=== PATIENT | female | born 1955 | race African-American/Black ===

== ENCOUNTER 2023-11-22 10:00 | Outpatient (RCR) | payer MEDICARE, MEDICAID, SELFPAY ==
--- NOTE | 2023-09-26 08:54 | OPREHPOC ---
Outpatient Therapy Plan of Care This is a Multidisciplinary Plan of Care that may contain components documented by all disciplines (PT, OT, and ST.) PT Problem 1 PT Problem #1 Knowledge Deficit PT Goal 1 Goal 1. Perform independent HEP Target Visit 9 PT Problem 2 PT Problem #2 Pain PT Goal 1 Goal 1. Patient able to do all ADL's with pain no higher than 1/10 Target Visit 9 PT Problem 3 PT Problem #3 Impaired Range of Motion PT Goal 1 Goal 1. Improve active knee flexion to 120 to return to prior level and allow for stair navigation Target Visit 9 PT Problem 4 PT Problem #4 Impaired Strength PT Goal 1 Goal 1. Improve L MMT to 5/5 knee flexion and extension in order to perform all ADL's Target Visit 9 PT Problem 5 PT Problem #5 Impaired Gait PT Goal 1 Goal 1. Pt will ambulate with normal gait pattern and no rollator Target Visit 9
--- NOTE | 2023-09-26 08:54 | PTOPEVAL1 ---
Assessment and note entered by Veronica Lopez DPT Evaluation Information Assessment Status Evaluation Subjective Information Pt had L TKA on 08/28/23. Reports she is still having trouble bending it. Had home health for awhile and has been discharged. Is using a walker at all times right now and states she is 50% WB. No walker use before surgery. Highest pain 4/10 and lowest 0/10. Is able to do some cooking and cleaning but has pain with standing too long. Dressing and bathing independently. Has not tried to drive yet. Pt is retired. One step to get into her house, stairs to basement laundry but her daughter is doing that now. Returns to Dr. García on 10/10/23. Patient goal: improve knee bending and get back to doing all my normal activities. Reported Pain Level Pain Score 0: Self Report Assessment PT Clinical Summary The patient is presenting to skilled therapy s/p L TKA on 08/28/23. She presents with greatly decreased flexion range of motion and is currently ambulating with a rollator. These impairments are contributing to her pain and difficulty with normal activities at home including navigating stairs to her basement. She will highly benefit from therapy to address these impairments in order to reduce pain and return to full function. LEFS= 58.75% of function. Plan of Care Interventions Electrical Stimulation,Gait Training,Hot Pack/Cold Pack,Manual Therapy,Neuro Re-education,Patient/ Caregiver Education,Therapeutic Activities, Therapeutic Exercise,Self-Care/Home Management PT Services Indicated Yes Treatment Frequency and 2 times a week for 8 visits Duration These treatments will address the objective and functional deficits as defined above. The patient will be advanced safely and appropriately in order for the patient to progress towards his/her prior level of function. Additional exercises will be introduced and as well as a comprehensive home exercise program upon discharge, if needed, ?to ensure carryover of functional gains achieved in the clinic. This treatment plan has been reviewed and agreement upon by the patient.
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
--- NOTE | 2023-10-25 10:37 | OPREHPOC ---
Outpatient Therapy Plan of Care This is a Multidisciplinary Plan of Care that may contain components documented by all disciplines (PT, OT, and ST.) PT Problem 1 PT Problem #1 Knowledge Deficit PT Goal 1 Goal 1. Perform independent HEP Target Visit 9 Progress Met PT Problem 2 PT Problem #2 Pain PT Goal 1 Goal 1. Patient able to do all ADL's with pain no higher than 1/10 Target Visit 9 Progress Met PT Problem 3 PT Problem #3 Impaired Range of Motion PT Goal 1 Goal 1. Improve active knee flexion to 120 to return to prior level and allow for stair navigation Target Visit 17 Progress Partially Met Comment 101 on 10/25/23 PT Problem 4 PT Problem #4 Impaired Strength PT Goal 1 Goal 1. Improve L MMT to 5/5 knee flexion and extension in order to perform all ADL's Target Visit 17 Progress Partially Met PT Problem 5 PT Problem #5 Impaired Gait PT Goal 1 Goal 1. Pt will ambulate with normal gait pattern and no rollator Target Visit 17 Progress Partially Met
--- NOTE | 2023-10-25 10:37 | PTOPPROG ---
Assessment and note entered by Veronica Lopez DPT Evaluation Information Assessment Status Progress Subjective Information Pt reports her knee has been feeling good. Saw the MD last week. Has been using a cane since last week and full weight bearing per MD. States per MD she can wean from cane as allowed in therapy. Has been doing more activity at home. Highest knee pain 1/10 in last week. Assessment PT Clinical Summary The patient has made good progress so far in therapy. She reports minimal pain over the last week. She demonstrates improved knee flexion to 101 degrees actively and has significantly increased her walking speed. She continues to lack full flexion and demonstrate gait/stair navigation impairments and will benefit from further therapy to address these impairments and return to prior level of function. Plan of Care Interventions Electrical Stimulation,Gait Training,Hot Pack/Cold Pack,Manual Therapy,Neuro Re-education,Patient/ Caregiver Education,Therapeutic Activities, Therapeutic Exercise PT Services Indicated Yes Treatment Frequency and 2 times a week for 8 visits Duration These treatments will address the objective and functional deficits as defined above. The patient will be advanced safely and appropriately in order for the patient to progress towards his/her prior level of function. Additional exercises will be introduced and as well as a comprehensive home exercise program upon discharge, if needed, ?to ensure carryover of functional gains achieved in the clinic. This treatment plan has been reviewed and agreement upon by the patient.
--- NOTE | 2023-11-22 10:31 | OPREHPOC ---
Outpatient Therapy Plan of Care This is a Multidisciplinary Plan of Care that may contain components documented by all disciplines (PT, OT, and ST.) PT Problem 1 PT Problem #1 Knowledge Deficit PT Goal 1 Goal 1. Perform independent HEP Target Visit 9 Progress Met PT Problem 2 PT Problem #2 Pain PT Goal 1 Goal 1. Patient able to do all ADL's with pain no higher than 1/10 Target Visit 9 Progress Met PT Problem 3 PT Problem #3 Impaired Range of Motion PT Goal 1 Goal 1. Improve active knee flexion to 120 to return to prior level and allow for stair navigation Target Visit 21 Progress Partially Met Comment 98 on 11/22/23 PT Problem 4 PT Problem #4 Impaired Strength PT Goal 1 Goal 1. Improve L MMT to 5/5 knee flexion and extension in order to perform all ADL's Target Visit 17 Progress Met PT Problem 5 PT Problem #5 Impaired Gait PT Goal 1 Goal 1. Pt will ambulate with normal gait pattern and no rollator Target Visit 21 Progress Partially Met Comment slight antalgic gait pattern
--- NOTE | 2023-11-22 10:31 | PTOPPROG ---
Assessment and note entered by Veronica Lopez DPT Evaluation Information Assessment Status Progress Subjective Information Pt reports no knee pain currently. Reports her knee seems to be moving better and she is getting back to her normal. Still notices some swelling. Returns to MD tomorrow. Has not needed to use her cane for 2 weeks. Assessment PT Clinical Summary The patient has continued to make good progress in therapy. She reports no real pain and overall improved function at home including navigating stairs to basement laundry. She demonstrates improved LE strength and gait speed. She demonstrates mild antalgic gait pattern and decreased L weight bearing with descending stairs. Her flexion continues to remain limited to 98 degrees actively and 100 degrees passively. Plan to continue therapy based on MD appointment tomorrow as patient's is having health issues and surgery next week. Plan of Care Interventions Electrical Stimulation,Gait Training,Hot Pack/Cold Pack,Manual Therapy,Neuro Re-education,Patient/ Caregiver Education,Therapeutic Activities, Therapeutic Exercise PT Services Indicated Yes Treatment Frequency and continue 1 time a week for 4 visits based on MD Duration appointment tomorrow These treatments will address the objective and functional deficits as defined above. The patient will be advanced safely and appropriately in order for the patient to progress towards his/her prior level of function. Additional exercises will be introduced and as well as a comprehensive home exercise program upon discharge, if needed, ?to ensure carryover of functional gains achieved in the clinic. This treatment plan has been reviewed and agreement upon by the patient.
--- NOTE | 2023-11-27 12:15 | PTOPDC ---
Assessment and note entered by NOHELIA OlivaT Evaluation Information Assessment Status Discharge - Pt Not Present Subjective Information - Assessment PT Clinical Summary Pt reports her MD is ok with her discharge at this time. Plan of Care PT Services Indicated No
== END 2023-11-27 12:49 | disposition home or self-care (01) ==
LOC: ANHGOSHPT 10:00
DX: Z47.1 Aftercare following joint replacement surgery (principal); Z96.652 Presence of left artificial knee joint
CPT/HCPCS: 97016; 97110; 97112; 97116; 97140; 97161; 97530